=== PATIENT | male | born 1980 | race Caucasian/White ===

== ENCOUNTER 2024-03-19 09:56 | Outpatient (CLI) | payer OTHER, SELFPAY ==
--- NOTE | ~2024-03-19 | MR_ITS ---
MRI of the right shoulder Technique: Axial proton-density fat-sat images, coronal proton density fat-sat and T2 fat-sat images, and sagittal T1-weighted and T2 fat-sat images were acquired. Clinical History: Pain Findings: There is minimal degenerative changes AC joint, with small subacromial spur present. Coraco clavicular, coracoacromial, and coracohumeral ligaments are intact. There is moderate supraspinatus and infraspinatus tendinosis. There is a focal low to possibly modera te grade articular surface partial tear at the distal supraspinatus tendon insertion measuring approx imately 5 mm in extent. Subscapularis tendon is intact. Tendon of the long head of the biceps is inta ct. No labral tear evident. Inferior glenohumeral ligament is intact. No degenerative change or effusion of the glenohumeral join t. There is minimal fluid in the subacromial/subdeltoid bursa. No muscle atrophy or edema. Impression: Moderate rotator cuff tendinosis with probable 5 mm focal low to possibly moderate grade articular katz rface partial tear at the distal supraspinatus tendon insertion. Minimal subacromial/subdeltoid bursitis. Reviewed, dictated and finalized at [facility]. Impression: Moderate rotator cuff tendinosis with probable 5 mm focal low to possibly moder ate grade articular surface partial tear at the distal supraspinatus tendon ins ertion. Minimal subacromial/subdeltoid bursitis.
== END 2024-03-19 09:57 ==
LOC: MICIMG 09:59
PROVIDERS: PCP Family Medicine; Visit Provider Physician Assistant
DX: M75.21 Bicipital tendinitis, right shoulder (principal); M75.51 Bursitis of right shoulder; M76.01 Gluteal tendinitis, right hip
CPT/HCPCS: 73221

== ENCOUNTER 2024-08-22 08:01 | Emergency (ER) | payer OTHER, SELFPAY ==
[2024-08-22 08:24] VITALS: BP 135/99; PULSE 72; RESP 15; TEMP 36.8; O2SAT 99
--- NOTE | 2024-08-22 08:26 | ED.EYEPROB ---
HPI - Eye Problem General Chief complaint: Eye Problems Stated complaint: rt eye irritation Time Seen by Provider: 08/22/24 08:27 Source: patient Mode of arrival: ambulatory Limitations: no limitations History of Present Illness HPI Narrative: 44-year-old male presented for complaint of right eye redness and irritation worsening over the past 2 days. Wears contact lenses. States symptoms started as feeling like an eyelash was in the eye. Pt admits to rubbing the eye. Has had frequent tearing since onset. Woke with more swelling to the right eye today. He did remove his contact lens at the onset, but wore them all day yesterday, and removed them again last night. Denies vision changes, photophobia, purulent drainage, headache, or foreign body sensation. MD chief complaint: eye pain Related Data Allergies Allergy/AdvReac Type Severity Reaction Status Date / Time No Known Allergies Allergy Verified 08/22/24 08:17 Review of Systems Review of Systems: CONSTITUTIONAL: Denies body aches, fever, chills EYES:Endorses swelling, redness and pain to right eye; Denies visual changes, FB sensation, photophobia ENT: Denies rhinorrhea, congestion, sore throat, or otalgia. CARDIOVASCULAR: Denies chest pain, palpitations RESPIRATORY: Denies cough or dyspnea. SKIN: Denies rash, itching, or wounds. NEUROLOGIC: Denies headache, numbness, tingling, or weakness. All systems reviewed & are unremarkable except as noted in HPI and below PMFSH Comments At time of signature, I have reviewed and agree with nursing past medical, surgical, social and family history unless otherwise noted. Please see nursing chart for further information. There is no relevant family history pertinent to the presenting complaint Exam Narrative: GENERAL: Well-appearing HEAD: Normocephalic, atraumatic. EYES: right conjunctival injection, mild right upper eye lid swelling. No purulent drainage. PERRLA, EOMI. Lid eversion shows no FB. No corneal abrasion noted on perez lamp exam. ENT: Mucous membranes pink and moist. No rhinorrhea. SKIN: Warm, dry, no rash. Normal skin turgor. NEURO: No focal deficits. Alert and oriented x3 PSYCH: Normal affect. Course Course Emergency Course: Patient is aware of diagnosis, understands and agrees to treatment plan. Anticipatory guidance given. Patient agrees to follow-up as directed and is aware of reasons to seek care at the emergency department. Portions of this record may have been created with voice recognition software Level of Care: Express Care Visit Vital Signs Vital signs: Vital Signs Temperature 98.2 F 08/22/24 08:24 Pulse Rate 72 08/22/24 08:24 Respiratory Rate 15 08/22/24 08:24 Blood Pressure 135/99 H 08/22/24 08:24 Pulse Oximetry 99 08/22/24 08:24 Oxygen Delivery Room Air 08/22/24 08:24 Temperature 98.2 F 08/22/24 08:24 Pulse Rate 72 08/22/24 08:24 Respiratory Rate 15 08/22/24 08:24 Blood Pressure 135/99 H 08/22/24 08:24 Pulse Oximetry 99 08/22/24 08:24 Oxygen Delivery Room Air 08/22/24 08:24 Procedures FB Removal Eye Foreign Body #1: Foreign Body Removal Date: 08/22/24 Location: eye (R) Topical anesthetic used: tetracaine Evidence of corneal penetration: No Procedure performed under: other (Wood's lamp) Foreign Body Removal Narrative: Right Eye was anesthetized with 1 drop of tetracaine and anesthesia was achieved. Lid was everted and examined for foreign body. No foreign body, corneal abrasion, or ulceration identified with Perez lamp. The eye was flushed with eye wash. Pt tolerated procedure well. MDM - Eye Problem MDM Narrative Medical decision making narrative: Discussed physical exam findings, no apparent corneal ulceration or abrasion identified on Wood's lamp exam. Will send Rx ofloxacin is patient is a contact lens wearer. Advised supportive measures and signs/symptoms to go to the ER. Pt
== END 2024-08-22 08:46 | disposition home or self-care (01) ==
PROVIDERS: Emergency Provider Nurse Practitioner Family
DX: H10.9 Unspecified conjunctivitis (principal)
CPT/HCPCS: 99213; A9270; G0463